=== PATIENT | female | born 1995 | race Hispanic/Latino ===

== ENCOUNTER 2017-06-03 08:52 | Emergency (ER) | payer MEDICAID ==
[2017-06-03 09:35] VITALS: RESP 17; O2SAT 98
--- NOTE | 2017-06-03 09:43 | ED PDOC ---
HPI: SOB/CHF/COPD Time Seen by Provider: 06/03/17 09:10 Chief Complaint (Nursing): Back Pain Chief Complaint (Provider): Shortness of Breath History Per: Patient History/Exam Limitations: no limitations Onset/Duration Of Symptoms: Days (x2 days) Current Symptoms Are (Timing): Still Present Associated Symptoms: denies: Fever, Chills Additional Complaint(s): Namrata Salinas, a 21 year old female, presents to the ED complaining of shortness of breath as well as pain in the right side of her abdomen x2 days. The patient states that she was seen at [facility] 2 weeks ago and was prescribed amoxicillin as she was diagnosed with bronchitis. Denies fever, chills, nausea, vomiting, dysuria, abdominal pain, blood in urine. LMP: 2 weeks ago Past Medical History Reviewed: Historical Data, Nursing Documentation, Vital Signs Vital Signs: Last Vital Signs Temp Pulse Resp 17 06/03/17 09:30 BP Pulse Ox 98 06/03/17 10:00 - Medical History PMH: No Chronic Diseases - Surgical History Surgical History: No Surg Hx - Family History Family History: States: Unknown Family Hx - Home Medications Home Medications: Ambulatory Orders Medication Instructions Recorded Guaifenesin/Pseudoephedrne HCl 1 each PO Q12H PRN #20 tab.er.12h 06/03/17 [Mucinex D ER Tablet] Naproxen [Naprosyn] 500 mg PO BID PRN #20 tablet 06/03/17 - Allergies Allergies/Adverse Reactions: Allergies Allergy/AdvReac Type Severity Reaction Status Date / Time No Known Allergies Allergy Verified 06/03/17 09:13 Review of Systems ROS Statement: Except As Marked, All Systems Reviewed And Found Negative Constitutional: Negative for: Fever, Chills Gastrointestinal: Negative for: Nausea, Vomiting, Abdominal Pain Genitourinary Female: Negative for: Dysuria, Hematuria Physical Exam - Reviewed Nursing Documentation Reviewed: Yes Vital Signs Reviewed: Yes - Physical Exam Appears: Positive for: Non-toxic, No Acute Distress Head Exam: Positive for: ATRAUMATIC, NORMAL INSPECTION, NORMOCEPHALIC Skin: Positive for: Normal Color, Warm, Dry. Negative for: Rash Eye Exam: Positive for: Normal appearance, EOMI, PERRL ENT: Positive for: Normal ENT Inspection, Nasal Congestion. Negative for: Tonsillar Exudate, Tonsillar Swelling Neck: Positive for: Normal, Painless ROM, Supple Cardiovascular/Chest: Positive for: Regular Rate, Rhythm, Chest Non Tender. Negative for: Tachycardia Respiratory: Positive for: Normal Breath Sounds (Good air entry b/l). Negative for: Rales, Rhonchi, Wheezing, Respiratory Distress Gastrointestinal/Abdominal: Positive for: Normal Exam, Bowel Sounds, Soft. Negative for: Tenderness, Guarding, Rebound Back: Positive for: R CVA Tenderness (Mild right CVA tenderness). Negative for : L CVA Tenderness Extremity: Positive for: Normal ROM. Negative for: Tenderness, Deformity, Swelling Lymphatic: Negative for: Adenopathy Neurologic/Psych: Positive for: Alert, Oriented, Gait - ECG O2 Sat by Pulse Oximetry: 98 (RA) Pulse Ox Interpretation: Normal - Radiology X-Ray: Viewed By Me, Read By Radiologist X-Ray Interpretation: No Acute Disease Medical Decision Making Medical Decision Makin Initial Impression: 21 year old female presenting with URI Initial Plan: * Upreg * Udip * Reevaluation 947 Upreg and Udip performed: Negative Scribe Attestation Documented by Michell Alegre acting as a scribe for Irina Phillips MD. Provider Attestation: All medical record entries made by the Scribe were at my direction and personally dictated by me. I have reviewed the chart and agree that the record accurately reflects my personal performance of the history, physical exam, medical decision making, and the department course for this patient. I have also personally directed, reviewed, and agree with the discharge instructions and disposition. Disposition - Clinical Impression Clinical Impression: URI (upper respiratory infection) - Patient ED Disposition Is Patient to be Admitted: No Doctor Will See Patient In The: Office Counseled Patient/Family Regarding: Diagnosis, Need For Followup, Rx Given - Disposition Disposition: Routine/Home Disposition Time: 11:15 Condition: STABLE Prescriptions: Guaifenesin/Pseudoephedrne HCl [Mucinex D ER Tablet] 1 each PO Q12H PRN #20 tab.er.12h PRN Reason: Cough Naproxen [Naprosyn] 500 mg PO BID PRN #20 tablet PRN Reason: Pain, Moderate (4-7) Instructions: Upper Respiratory Infection (ED) Forms: [employer] [facility] [employer] (Welsh)
--- NOTE | 2017-06-03 10:50 | RAD ---
HISTORY: cough COMPARISON: No prior. TECHNIQUE: Chest PA and lateral FINDINGS: LUNGS: No evidence of focal infiltrate or consolidation in the lungs. PLEURA: Pleural thickening versus trace pleural effusion seen at the right fissure. Otherwise no evidence of significant pleural effusion or pneumothorax. CARDIOVASCULAR: Normal. OSSEOUS STRUCTURES: No significant abnormalities. VISUALIZED UPPER ABDOMEN: Normal. OTHER FINDINGS: None. IMPRESSION: No radiographic evidence of pneumonia. Dural thickening versus trace pleural effusion at the right fissure more prominent in the lateral view. Otherwise no evidence of acute pathology.
[2017-06-03] MEDS ORDERED: Naproxen 500 MG TAB PO ONE ×2 (10:57→11:31)
[2017-06-03 11:47] VITALS: BP 126/78; PULSE 89; TEMP 98.4
== END 2017-06-03 11:47 | disposition home or self-care (01) ==
LOC: H.ER 08:52
DX: J06.9 Acute upper respiratory infection, unspecified (principal); F17.210 Nicotine dependence, cigarettes, uncomplicated